=== PATIENT | male | born 1995 | race Caucasian/White ===

== ENCOUNTER 2017-05-19 11:20 | Emergency (ER) | payer OTHER ==
[~2017-05-19] VITALS: Ht 188 cm; Wt 82.0 kg
[2017-05-19] MEDS ORDERED: ketorolac trometh inj. 60 MG/2 ML VIAL IM ONE (12:50)
[2017-05-19] MEDS ORDERED: IBUP-1984 PO (13:23)
[2017-05-19 13:42] VITALS: BP 116/70
== END 2017-05-19 13:43 | disposition home or self-care (01) ==
LOC: ER 11:21
DX: M54.5 Low back pain (principal); R51 Headache; Z88.2 Allergy status to sulfonamides; V49.59XA Passenger injured in collision with other motor vehicles in traffic accident, initial encounter; Y93.89 Activity, other specified; Y92.413 State road as the place of occurrence of the external cause; Y99.9 Unspecified external cause status
CPT/HCPCS: 72080; 96372; 99284; J1885